=== PATIENT | female | born 1985 | race Two or more races ===

== ENCOUNTER 2024-08-09 04:41 | Inpatient (IN) | payer MEDICAID ==
[2024-08-09] MEDS: Lactated Ringers 1,000 ML IV ONE (05:00)
[2024-08-09] MEDS ORDERED: Terbutaline 1 MG/ML SDV ONE (05:14)
[2024-08-09 05:44] LABS: BASOPHILS PERCENT AUTO 0.1 % (0.0-1.0); EOSINOPHILS ABSOLUTE AUTO 0.1 K/mm3 (0.0-0.4); EOSINOPHILS PERCENT AUTO 1.3 % (0.0-6.0); HEMATOCRIT 36.5 % (37.0-47.0); HEMOGLOBIN 12.2 gm/dl (12.0-16.0); IMMATURE GRAN ABSOLUTE AUTO 0.13 K/mm3 (0.00-0.05); IMMATURE GRAN PERCENT AUTO 1.2 % (0.0-0.4); LYMPHOCYTES ABSOLUTE AUTO 1.8 K/mm3 (1.0-4.8); LYMPHOCYTES PERCENT AUTO 16.3 % (24.0-44.0); MEAN CORPUSCULAR HEMOGLOBIN 30.6 pg (28.0-32.0); MEAN CORPUSCULAR HGB CONC 33.4 g/dl (32.0-36.0); MEAN CORPUSCULAR VOLUME 91.5 fl (83.0-99.0); MONOCYTES ABSOLUTE AUTO 1.1 K/mm3 (0.0-0.8); NEUTROPHILS ABSOLUTE AUTO 7.8 K/mm3 (1.8-7.7); NEUTROPHILS PERCENT AUTO 71.1 % (41.0-71.0); PLATELET COUNT,PLT 216 K/mm3 (150-400); RED BLOOD CELL COUNT 3.99 M/mm3 (4.10-5.30); WHITE BLOOD CELL COUNT,WBC 10.93 K/mm3 (3.9-11.3)
[2024-08-09 05:45] LABS: APPEARANCE,URINE CLEAR (Clear); BILIRUBIN,URINE NEGATIVE (Negative); COLOR,URINE YELLOW (Yellow); GLUCOSE,URINE NEGATIVE (Negative); KETONES,URINE NEGATIVE (Negative); LEUKOCYTE ESTERASE,URINE NEGATIVE (Negative); NITRITE,URINE NEGATIVE (Negative); OCCULT BLOOD,URINE NEGATIVE (Negative); PROTEIN,URINE TRACE (Negative); UROBILINOGEN,URINE 0.2 (0.2-1.0)
[2024-08-09 05:52] LABS: BACTERIA,URINE FEW /hpf (FEW); HYALINE CASTS,URINE 0-5 /lpf (0-5); MUCUS,URINE MODERATE /hpf (FEW); RBC,URINE 0-5 /hpf (0-5); SQUAMOUS EPITHELIAL CELLS,UR 0-5 /hpf (0-5); WBC,URINE 0-5 /hpf (0-5)
[2024-08-09] MEDS ORDERED: Betamethasone Acetate/Betamethasone Sod Phosphate 6 MG/1 ML MDV IM SCH (06:15)
[2024-08-09] MEDS ORDERED: Sodium Chloride 0.9% 10 ML Syringe FLUSH PRN (07:17)
[2024-08-09] MEDS ORDERED: ceFAZolin 2 GM in Sodium Chloride 0.9% 100 ML IV ONE (07:17)
[2024-08-09] MEDS ORDERED: Lactated Ringers 1,000 ML IV SCH (07:30)
[2024-08-09] MEDS ORDERED: Oxytocin/0.9 % Sodium Chloride 30 UNIT/500 ML BAG IV SCH (07:30)
[2024-08-09] MEDS: Metoclopramide 10 MG/2 ML SDV IVPUSH ONE (07:32)
[2024-08-09] MEDS: Citric Acid/Sodium Citrate Solution 30 ML Cup PO ONE (07:33)
[2024-08-09] MEDS ORDERED: Ketorolac 30 MG/ML SDV ONE (07:49)
[2024-08-09] MEDS ORDERED: Ondansetron 4 MG/2 ML SDV ONE (07:49)
[2024-08-09] MEDS ORDERED: Lactated Ringers 1,000 ML ONE (07:49)
[2024-08-09] MEDS ORDERED: ceFAZolin 2 GM Vial ONE (07:50)
[2024-08-09] MEDS ORDERED: Morphine PF 10 MG/10 ML SDV ONE (07:50)
[2024-08-09] MEDS ORDERED: Ondansetron 4 MG/2 ML SDV IVPUSH PRN (08:10)
[2024-08-09] MEDS ORDERED: diphenhydrAMINE 50 MG/ML SDV IVPUSH PRN ×2 (08:10→09:51)
[2024-08-09] MEDS ORDERED: fentaNYL 100 MCG/2 ML SDV IVPUSH PRN (08:10)
[2024-08-09] MEDS ORDERED: Meperidine 50 MG/ML Vial IVPUSH PRN (08:10)
[2024-08-09] MEDS ORDERED: ePHEDrine 50 MG/ML SDV ONE (08:22)
[2024-08-09] MEDS ORDERED: Phenylephrine 1% 10 MG/ML SDV ONE (08:25)
[2024-08-09] MEDS ORDERED: Naloxone 0.4 MG/ML SDV IVPUSH PRN (09:51)
[2024-08-09] MEDS ORDERED: Bisacodyl 10 MG Supp RECTAL PRN (09:51)
[2024-08-09] MEDS ORDERED: oxyCODONE 5 MG Tab PO PRN (09:51)
[2024-08-09] MEDS ORDERED: ePHEDrine 50 MG/ML SDV IVPUSH PRN (09:51)
[2024-08-09] MEDS: Dextrose 5%-Lactated Ringers 1,000 ML IV SCH (11:37)
[2024-08-09] MEDS: Acetaminophen 325 MG Tab PO SCH (11:40)
[2024-08-09] MEDS: Docusate Sodium 100 MG Cap PO SCH (18:20)
[2024-08-09] MEDS: Ibuprofen 800 MG Tab PO SCH (18:20)
[2024-08-09] MEDS: Sodium Chloride 0.9% 10 ML Syringe FLUSH SCH (21:05)
[2024-08-10 02:09] LABS: GROUP B STREP BY PCR NEGATIVE (NEGATIVE)
[2024-08-10 05:53] LABS: HEMATOCRIT 31.7 % (37.0-47.0); HEMOGLOBIN 10.8 gm/dl (12.0-16.0); MEAN CORPUSCULAR HEMOGLOBIN 30.8 pg (28.0-32.0); MEAN CORPUSCULAR HGB CONC 34.1 g/dl (32.0-36.0); MEAN CORPUSCULAR VOLUME 90.3 fl (83.0-99.0); MEAN PLATELET VOLUME 9.8 fl (9.4-12.3); PLATELET COUNT,PLT 202 K/mm3 (150-400); RED BLOOD CELL COUNT 3.51 M/mm3 (4.10-5.30); WHITE BLOOD CELL COUNT,WBC 11.48 K/mm3 (3.9-11.3)
== END 2024-08-10 11:45 | disposition home or self-care (01) | DRG 788 ==
LOC: JD.OBCHECK 04:41 → JD.OB 04:47 → JD.OBCHECK 07:16 → JD.OB 07:17
PROVIDERS: ADMIT Obstetrics & Gynecology; ATTEND Obstetrics & Gynecology
PROC: 10D00Z1 Extraction of Products of Conception, Low, Open Approach (ICD-10-PCS; principal; 2024-08-09 07:56)
DX: O60.14X0 Preterm labor third trimester with preterm delivery third trimester, not applicable or unspecified (principal); O76 Abnormality in fetal heart rate and rhythm complicating labor and delivery; O34.211 Maternal care for low transverse scar from previous cesarean delivery; Z37.0 Single live birth; Z3A.34 34 weeks gestation of pregnancy
CPT/HCPCS: 01961; 36415; 59025; 81001; 85025; 85027; 86592; 86850; 86900; 86901; 87653; 99140; A9270-GY; J0690; J1885; J2274; J2371; J2405; J2765; J3490; J7120; J7121